=== PATIENT | female | born 1980 | race American Indian/Alaskan Native ===

== ENCOUNTER 2016-11-05 23:56 | Emergency (ER) | payer MEDICAID ==
[2016-11-06 00:32] VITALS: BP 120/85
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
--- NOTE | 2016-11-07 14:05 | ED Elopement Review ---
ED Pt Elopement review - Results review Lab results: Laboratory Tests 11/06/16 03:57 Urine HCG, Qual Negative - Call Back decision Pt Call Back Decision: No action required
== END 2016-11-06 05:15 | disposition left against medical advice (07) ==
LOC: ED 23:56
DX: S01.81XA Laceration without foreign body of other part of head, initial encounter (principal); Y04.8XXA Assault by other bodily force, initial encounter; Y93.89 Activity, other specified; Y99.8 Other external cause status; Y92.89 Other specified places as the place of occurrence of the external cause; Z53.21 Procedure and treatment not carried out due to patient leaving prior to being seen by health care provider
CPT/HCPCS: 70450; 81025

== ENCOUNTER 2021-05-07 09:56 | Emergency (ER) | payer MEDICAID | END 2021-05-08 10:16 | disposition left against medical advice (07) | LOC: ED 09:56 | DX: R52 Pain, unspecified (principal); Z53.21 Procedure and treatment not carried out due to patient leaving prior to being seen by health care provider ==